=== PATIENT | female | born 1970 | race Caucasian/White ===

== ENCOUNTER → 2016-07-17 | Outpatient (CLI) | payer OTHER ==
--- NOTE | 2016-07-17 13:20 | MA ---
Screening Digital Mammogram With Tomosynthesis Clinical Indications: Routine screening. Technique: Standard digital cephalocaudal and tomosynthesis mediolateral oblique projections were ob tained. The digital images were processed by the [employer] computer aided detection system. Comparison: 2014, 2013, 2012, 2010 Breast density: D; The breast tissue is extremely dense. This may lower the sensitivity of mammograph y. Findings: CAD was reviewed. No suspicious findings are identified. Impression: Negative mammogram. BI-RADS 1. Recommendation: Routine screening is recommended in one year, as long as physical examination is cait ign in this patient with extremely dense breast parenchyma. [facility] will send a result letter to the patient. Negative mammography should not preclude additional workup of a clinically suspicious finding. The patient's information is entered into a reminder system with a target due date for her next mammo gram.
== END ==
LOC: FIMAGING 09:47
DX: Z12.31 Encounter for screening mammogram for malignant neoplasm of breast (principal)
CPT/HCPCS: G0202

== ENCOUNTER → 2017-07-25 | Outpatient (CLI) | payer OTHER | LOC: FIMAGING 15:28 | PROVIDERS: ATTEND Obstetrics & Gynecology | DX: Z12.31 Encounter for screening mammogram for malignant neoplasm of breast (principal) ==

== ENCOUNTER → 2018-10-01 | Outpatient (CLI) | payer OTHER | LOC: FIMAGING 13:37 | PROVIDERS: ATTEND Obstetrics & Gynecology | DX: Z12.31 Encounter for screening mammogram for malignant neoplasm of breast (principal) ==